=== PATIENT | male | born 1990 | race Caucasian/White ===

== ENCOUNTER 2024-03-14 11:05 | Day surgery (SDC) | payer OTHER ==
[2024-03-14] VITALS (13 sets, daily range): BP systolic 115–136; BP diastolic 59–87; PULSE 47–60; TEMP 97–98.8
[~2024-03-14] VITALS: Ht 170.2 cm; Wt 74.6 kg
[~2024-03-14 11:05] MED LIST: 1/2 NS 1,000 ML IV SCH
[2024-03-14] MEDS ORDERED: MAGNESIUM500 MG PO (11:18)
[2024-03-14] MEDS ORDERED: MASON NATURAL1200 MG PO (11:19)
[2024-03-14] MEDS ORDERED: MOBIC15 MG PO (11:19)
[2024-03-14] MEDS ORDERED: COMPLETE MULTI1 TAB PO (11:19)
[2024-03-14] MEDS ORDERED: NITROSTAT0.4 MG/TAB SL (11:20)
[2024-03-14] MEDS ORDERED: VALTREX 50500 MG/TAB PO (11:20)
[2024-03-14] MEDS ORDERED: LOPRESSOR 225 MG/TAB PO (11:21)
[2024-03-14] MEDS ORDERED: ASPIRIN E.C. 8181 MG PO (11:35)
[2024-03-14] MEDS ORDERED: PLAVIX 75MG TAB75 MG PO (11:36)
[2024-03-14] MEDS ORDERED: CRESTOR40 MG PO (11:36)
[2024-03-14] MEDS ORDERED: TOPROL XL 25MG25 MG PO (11:36)
[2024-03-14 12:03] LABS: HEMATOCRIT 43.3 % (42.0-52.0); HEMOGLOBIN 14.5 g/dl (13.5-18.0); MEAN CELL VOLUME 92 fl (80.0-100.0); MEAN CORPUSCULAR HEMOGLOBIN 31 pg (27-31); MEAN CORPUSCULAR HGB CONC 34 g/dl (33.0-37.0); PLATELET COUNT 171 K/mm3 (130-400); RED BLOOD COUNT 4.72 M/mm3 (4.20-5.60); REDCELL DISTRIBUTION WIDTH-CV 11.9 % (11.5-14.5)
[2024-03-14 12:10] LABS: PROTHROMBIN TIME 10.8 SECONDS (9.7-12.8)
[2024-03-14 12:13] LABS: PARTIAL THROMBOPLASTIN TIME 32.9 SECONDS (26.0-37.0)
[2024-03-14 12:16] LABS: CREATININE, serum 0.92 mg/dL (0.72-1.25); POTASSIUM 4.3 mEq/L (3.5-4.5)
--- NOTE | 2024-03-14 14:05 | NUR ---
See Merge report for procedural sedation/notes
[2024-03-14] MEDS ORDERED: Nitroglycerin 100 MCG/ML (Cath Lab) 10 ML VIAL IA SCH (14:08)
[2024-03-14] MEDS ORDERED: Bivalirudin 250 MG in NS 50 ML IV SCH (14:27)
[2024-03-14] MEDS ORDERED: niCARdipine (Cath Lab) 100 MCG/ML 10 ML VIAL INCOR SCH (14:29)
[2024-03-14] MEDS ORDERED: Heparin 1,000 UNITS/ML 10 ML Multi-Dose VIAL IA SCH (14:33)
[2024-03-14] MEDS ORDERED: Midazolam 2 MG/2 ML VIAL IV SCH (14:35)
[2024-03-14] MEDS ORDERED: fentaNYL 50 MCG/ML 2 ML VIAL IV SCH (14:35)
[2024-03-14] MEDS ORDERED: Iohexol 350 - 100 ML VIAL INCOR ONE (14:39)
[2024-03-14] MEDS ORDERED: Clopidogrel 300 MG DOSE (75 mg x 4 tabs) PO SCH (14:44)
--- NOTE | 2024-03-14 15:00 | NUR ---
PT ARRIVED FROM [facility] TO 351. PT IS AXOX4. PT IS RAHugo DOVER ON TELE. VSS. PT ORIENTED TO ROOM AND FLOOR. CATH SITE TO R RADIAL WRIST, TR BAND WITH 14ML AIR, NO DRAINAGE OR SWELLING. CALL LIGHT GIVEN AND INSTRUCTED TO CALL WITH ALL NEEDS. WATER AND URINAL GIVEN. PT INSTRUCTED HOW TO ORDER LUNCH. PT INSTRUCTED TO CALL WITH ALL NEED.
--- NOTE | 2024-03-14 17:30 | NUR ---
2ML AIR REMOVED FROM TR BAND. SITE BEGAN TO BLEED RIGHT AWAY. 2ML AIR REINSTILLED. SITE CLEANED. NO HEMATOMA NOTED. PT INSTRUCTED TO CALL WITH ANY BLEEDING, SWELLING, OR PAIN.
--- NOTE | 2024-03-14 17:44 | NUR ---
2MLS OF AIR REMOVED FROM TR BAND. SIGHT BEGAN TO BLEED. 2MLS AIR REINSTILLED. SIGHT CLEANED. NO HEMATOMA NOTED. PT INSTRUCTED TO CALL WITH ANY PAIN, SWELLING, OR BLEEDING.
--- NOTE | 2024-03-14 19:45 | NUR ---
pt STABLE. BAND DEFLATED BY 2ML, BUT REINFLATED BECAUSE SITE BEGAN TO BLEED. pt DENIES PAIN. NO HEMATOMA NOTED. WILL CONTINUE TO MONITOR. CALL LIGHT WITHIN REACH.
[2024-03-15 00:03] VITALS: BP 134/82; PULSE 45; TEMP 98.3
[2024-03-15 00:05] VITALS: BP 134/82; PULSE 45; TEMP 98.3
[2024-03-15 04:25] VITALS: BP 128/75; PULSE 49; TEMP 97.7
--- NOTE | 2024-03-15 04:25 | NUR ---
pt STABLE. BAND DEFLATED GRADUALLY THROUGHOUT THE SHIFT. BAND FULLY REMOVED. 2X2 PLACED ON SITE, THAT STARTED TO OOZE A VERY SMALL AMOUNT OF BLOOD. BAND REPLACED ON SITE OVER 2X2, NO AIR ADDED TO BALLOON. WILL CONTINUE TO MONITOR. CALL LIGHT WITHIN REACH.
--- NOTE | 2024-03-15 06:50 | NUR ---
PT RESTING IN BED. PT IS ON RA. PT IS SB ON TELE. PT IS AXOX4. PT HAS TR BAND TO R RADIAL WITH NO AIR, NO BLEEDING NOTED. PT HAS CALL LIGHT AND INSTRUCTED TO CALL WITH ALL NEEDS.
[2024-03-15 07:06] LABS: BASO % 0.6 % (0.0-2.0); EOS # 0.2 K/mm3 (0.0-0.7); GRAN # 4.8 K/mm3 (1.4-6.5); GRAN % 71.9 % (42.2-75.2); HEMATOCRIT 43.3 % (42.0-52.0); HEMOGLOBIN 14.7 g/dl (13.5-18.0); LYMPH # 1.1 K/mm3 (1.2-3.4); LYMPH % 16.7 % (20.0-51.0); MEAN CELL VOLUME 90 fl (80.0-100.0); MEAN CORPUSCULAR HEMOGLOBIN 31 pg (27-31); MEAN CORPUSCULAR HGB CONC 34 g/dl (33.0-37.0); MEAN PLATELET VOLUME 11.2 fl (7.4-10.4); MONO # 0.5 K/mm3 (0.1-0.6); MONO % 7.7 % (1.7-9.3); PLATELET COUNT 170 K/mm3 (130-400); RED BLOOD COUNT 4.79 M/mm3 (4.20-5.60); REDCELL DISTRIBUTION WIDTH-CV 11.8 % (11.5-14.5)
[2024-03-15 07:25] LABS: CALCIUM 9.2 mg/dL (8.4-10.2); CREATININE, serum 0.88 mg/dL (0.72-1.25); POTASSIUM 4.5 mEq/L (3.5-4.5)
[2024-03-15 08:02] VITALS: BP 136/81; BP 160/76; PULSE 50; TEMP 97.7
--- NOTE | 2024-03-15 08:43 | NUR ---
0830- TR BAND REMOVED. SITE C/D/I. NO DRAINGAGE, BLEEDING, SWELLING, OR HEMATOMA. BANDAID APPLIED. JAZMYN TALLEY NOTIFIED THAT HOME MEDS WERE NOT RESTARTED.
[2024-03-15] MEDS ORDERED: valACYclovir 500 MG TAB PO SCH (09:00)
[2024-03-15] MEDS ORDERED: Clopidogrel 75 MG TAB PO SCH (09:00)
[2024-03-15 09:05] VITALS: BP_SYST 136
--- NOTE | 2024-03-15 11:09 | NUR ---
1050 IV AND TELE DISCONTINUED. DISCHARGE INSTRUCTIONS, FOLLOW UP APPOINTMENTS, AND POST CATH CARE DISCUSSED WITH PT AND . ALL QUESTIONS ANSWERED. 1105 PT ACCOMPAINED OUT BY [facility] AND FOR DISCHARGE.
--- NOTE | 2024-03-15 11:32 | NUR ---
Cardiac Rehab staff unable to visit with patient while in-patient. Staff member will follow up via phone call to review CVD risk factors, cardiac rehab referral and enrollment into local program. Patient address is [place]. [employer]io is medical insurance.
== END 2024-03-15 11:10 | disposition home or self-care (01) ==
LOC: COL.CAR 11:05 → MEDICAL 15:00 → COL.CAR 03-15 11:10
PROVIDERS: Internal Medicine Interventional Cardiology; Nurse Practitioner
DX: I25.119 Atherosclerotic heart disease of native coronary artery with unspecified angina pectoris (principal)
CPT/HCPCS: OP; C1725; C1757; C1769; C1874; C1887; C9600; J0583; J1644; J2250; J2404; J3010; Q9967

== ENCOUNTER → 2024-03-16 | Outpatient (CLI) | payer OTHER ==
[~2024-03-16] MED LIST changes: -1/2 NS 1,000 ML IV SCH; +ASPIRIN E.C. 8181 MG PO; +COMPLETE MULTI1 TAB PO; +CRESTOR40 MG PO; +LOPRESSOR 225 MG/TAB PO; +MAGNESIUM500 MG PO; +MASON NATURAL1200 MG PO; +MOBIC15 MG PO; +NITROSTAT0.4 MG/TAB SL; +PLAVIX 75MG TAB75 MG PO; +TOPROL XL 25MG25 MG PO; +VALTREX 50500 MG/TAB PO
[2024-03-16 12:32] LABS: BASO % 0.5 % (0.0-2.0); EOS # 0.1 K/mm3 (0.0-0.7); EOS % 2.1 % (0.0-4.0); GRAN # 4.2 K/mm3 (1.4-6.5); GRAN % 66.6 % (42.2-75.2); HEMATOCRIT 45.1 % (42.0-52.0); HEMOGLOBIN 15.5 g/dl (13.5-18.0); LYMPH # 1.5 K/mm3 (1.2-3.4); LYMPH % 24.3 % (20.0-51.0); MEAN CELL VOLUME 89 fl (80.0-100.0); MEAN CORPUSCULAR HEMOGLOBIN 31 pg (27-31); MEAN CORPUSCULAR HGB CONC 34 g/dl (33.0-37.0); MEAN PLATELET VOLUME 10.7 fl (7.4-10.4); MONO # 0.4 K/mm3 (0.1-0.6); MONO % 6.3 % (1.7-9.3); PLATELET COUNT 178 K/mm3 (130-400); RED BLOOD COUNT 5.06 M/mm3 (4.20-5.60); REDCELL DISTRIBUTION WIDTH-CV 11.8 % (11.5-14.5)
[2024-03-16 12:54] LABS: ERYTHROCYTE SEDIMENTATION RATE 8 mm/hr (0-15)
[2024-03-16 12:57] LABS: ALBUMIN 4.2 g/dL (3.5-5.0); BILIRUBIN,TOTAL 0.4 mg/dL (0.2-1.2); C-REACTIVE PROTEIN 0.19 mg/dL (0.00-0.50); CALCIUM 9.7 mg/dL (8.4-10.2); CREATININE, serum 1.02 mg/dL (0.72-1.25); POTASSIUM 4.7 mEq/L (3.5-4.5); TOTAL PROTEIN 7.3 g/dl (6.2-8.1)
[2024-03-16 13:03] LABS: TROPONIN-I 0.013 ng/mL (0.00-0.033)
== END ==
LOC: COL.LAB 12:06
PROVIDERS: Nurse Practitioner
DX: I25.119 Atherosclerotic heart disease of native coronary artery with unspecified angina pectoris (principal)

== ENCOUNTER → 2024-05-06 | Outpatient (CLI) | payer OTHER ==
[2024-05-06 15:18] LABS: BASO % 0.6 % (0.0-2.0); EOS # 0.1 K/mm3 (0.0-0.7); EOS % 1.1 % (0.0-4.0); GRAN # 4.1 K/mm3 (1.4-6.5); GRAN % 63.4 % (42.2-75.2); HEMOGLOBIN 15.3 g/dl (13.5-18.0); LYMPH # 1.9 K/mm3 (1.2-3.4); MEAN CELL VOLUME 90 fl (80.0-100.0); MEAN CORPUSCULAR HEMOGLOBIN 31 pg (27-31); MEAN CORPUSCULAR HGB CONC 34 g/dl (33.0-37.0); MEAN PLATELET VOLUME 10.1 fl (7.4-10.4); MONO # 0.3 K/mm3 (0.1-0.6); MONO % 4.7 % (1.7-9.3); PLATELET COUNT 193 K/mm3 (130-400); RED BLOOD COUNT 4.99 M/mm3 (4.20-5.60); REDCELL DISTRIBUTION WIDTH-CV 12.3 % (11.5-14.5)
[2024-05-06 15:39] LABS: ALANINE AMINOTRANSFERASE 60 U/L (0-55); ALBUMIN 4.5 g/dL (3.5-5.0); ALKALINE PHOSPHATASE 73 U/L (40-150); ANION GAP 9 mmol/L (7-16); AST,SGOT 45 U/L (5-34); BILIRUBIN,TOTAL 0.4 mg/dL (0.2-1.2); BLOOD UREA NITROGEN 15 mg/dL (9-21); CALCIUM 9.7 mg/dL (8.4-10.2); CHLORIDE 105 mEq/L (98-107); CREATININE, serum 1.05 mg/dL (0.72-1.25); GLUCOSE 83 mg/dL (70-99); POTASSIUM 4.6 mEq/L (3.5-4.5); SODIUM 139 mEq/L (136-145); TOTAL PROTEIN 7.6 g/dl (6.2-8.1)
[2024-05-06 15:44] LABS: TROPONIN-I < 0.010 ng/mL (0.00-0.033)
== END ==
LOC: COL.LAB 14:15
PROVIDERS: Nurse Practitioner
DX: I25.119 Atherosclerotic heart disease of native coronary artery with unspecified angina pectoris (principal)